=== PATIENT | female | born 2000 | race Caucasian/White ===

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

== ENCOUNTER 2019-02-11 13:40 | Emergency (ER) | payer MEDICAID ==
[~2019-02-11] VITALS: Ht 162.6 cm; Wt 74.8 kg
[~2019-02-11 13:40] MED LIST: PREN-96 PO
[2019-02-11 15:40] VITALS: BP 125/59
== END 2019-02-11 16:12 | disposition home or self-care (01) ==
LOC: ER 13:44
DX: J02.9 Acute pharyngitis, unspecified (principal)

== ENCOUNTER 2024-02-15 09:14 | Emergency (ER) | payer MEDICAID | END 2024-02-15 10:20 | disposition left against medical advice (07) | LOC: ER 09:14 | DX: R10.9 Unspecified abdominal pain (principal); Z53.21 Procedure and treatment not carried out due to patient leaving prior to being seen by health care provider ==